=== PATIENT | male | born 1955 | race Two or more races ===

== ENCOUNTER 2019-11-20 14:03 | Outpatient (CLI) | payer OTHER ==
[~2019-11-20] VITALS: Ht 167.6 cm; Wt 63.5 kg
[2019-11-20] MEDS ORDERED: TENORMIN50 M1 (14:18)
[2019-11-20] MEDS ORDERED: OMEPRAZOLE40 MG (14:20)
== END 2019-11-20 16:40 | disposition home or self-care (01) ==
LOC: OFIC 805 14:03
PROVIDERS: ATTEND Otolaryngology Otology & Neurotology
DX: R13.19 Other dysphagia (principal); K21.0 Gastro-esophageal reflux disease with esophagitis; H92.03 Otalgia, bilateral